=== PATIENT | female | born 1960 | race Caucasian/White ===

== ENCOUNTER → 2017-07-03 | Outpatient (CLI) | payer BC, OTHER ==
--- NOTE | 2017-07-03 08:55 | REPMRS ---
Patient History The patient states she had a clinical breast exam in 07/06 Patient is postmenopausal and has history of thyroid cancer at age 41. No known family history of cancer. Taking unspecified hormones for 8 years. Digital Woman Screen Mammo: July 03, 2017 - Exam #: [id number] Bilateral CC and MLO view(s) were taken. Technologist: Noris Garcia, Technologist Prior study comparison: June 20, 2016, digital woman screen mammo performed at [facility]. June 06, 2015, digital woman screen mammo performed at [facility] to [facility]. FINDINGS: There are scattered fibroglandular densities. There has been no change in the appearance of the mammogram from the prior studies. There is a mild amount of residual fibroglandular tissue which is fairly symmetric. There is no interval development of dominant mass, architectural distortion, or clustered microcalcification suggestive of malignancy. ASSESSMENT: BI-RADS/ACR category 1 mammogram. Negative. Recommendation Routine screening mammogram in 1 year (for women over age 40). This mammogram was interpreted with the aid of an FDA-approved computer-aided dectection system. Electronically Signed By: Itz Dotson MD 07/03/17 [id number]
== END ==
LOC: M WHC 08:12
PROVIDERS: ATTEND Nurse Practitioner Women's Health
DX: Z12.31 Encounter for screening mammogram for malignant neoplasm of breast (principal)

== ENCOUNTER 2017-10-02 06:55 | Day surgery (SDC) | payer BC, OTHER ==
[2017-10-02] MEDS ORDERED: NS 1,000 ML IV (07:30)
[2017-10-02] MEDS ORDERED: PROPOFOL 200 MG/20 ML VIAL As Ordered (07:50)
[2017-10-02] MEDS ORDERED: LIDOCAINE 2% INJ 100 MG/5 ML SDV (FOR ANES.) As Ordered (07:50)
== END 2017-10-02 08:40 | disposition home or self-care (01) ==
LOC: M OPP 06:55
DX: Z12.11 Encounter for screening for malignant neoplasm of colon (principal); D12.5 Benign neoplasm of sigmoid colon; K57.30 Diverticulosis of large intestine without perforation or abscess without bleeding; M17.0 Bilateral primary osteoarthritis of knee; Z85.850 Personal history of malignant neoplasm of thyroid; Z90.710 Acquired absence of both cervix and uterus
CPT/HCPCS: 45385

== ENCOUNTER → 2018-06-30 | Outpatient (CLI) | payer BC, OTHER | LOC: M WHC 06:37 | DX: Z12.31 Encounter for screening mammogram for malignant neoplasm of breast (principal); Z78.0 Asymptomatic menopausal state | CPT/HCPCS: 77067 ==

== ENCOUNTER 2019-12-24 12:42 | Emergency (ER) | payer OTHER ==
[~2019-12-24] VITALS: Ht 162.6 cm; Wt 69.1 kg
[~2019-12-24 12:42] MED LIST: ESTR1TAB3 PO; L-FO500T PO; MULT1CHW26 PO; VITA100067 PO; [UNRECOGNIZED DRUG - OTHER]
--- NOTE | 2019-12-24 13:54 | REPVR ---
PROCEDURE INFORMATION: Exam: CT Head Without Contrast Exam date and time: 12/24/2019 1:46 PM Age: 59 years old Clinical indication: Weakness, extremity; Left; Additional info: L ue weakness TECHNIQUE: Imaging protocol: Computed tomography of the head without contrast. Radiation optimization: All CT scans at this facility use at least one of these dose optimization techniques: automated exposure control; mA and/or kV adjustment per patient size (includes targeted exams where dose is matched to clinical indication); or iterative reconstruction. COMPARISON: No relevant prior studies available. FINDINGS: Brain: No acute intracranial hemorrhage, cerebral edema, or midline shift. Ventricles: No hydrocephalus. Bones/joints: No acute fracture. Sinuses: No acute sinusitis. Mastoid air cells: Visualized mastoid air cells are well aerated. Soft tissues: Unremarkable. IMPRESSION: No acute intracranial abnormality. Electronically signed by: Darrel Prieto On 12/24/2019 13:54:42 PM
[2019-12-24] MEDS ORDERED: IBUP-1022 PO (14:05)
[2019-12-24] MEDS ORDERED: CYCL-707 PO (14:05)
[2019-12-24 14:14] VITALS: BP 145/77
== END 2019-12-24 14:15 | disposition home or self-care (01) ==
LOC: M ED 12:42
DX: M54.12 Radiculopathy, cervical region (principal); I10 Essential (primary) hypertension; E89.0 Postprocedural hypothyroidism; Z85.850 Personal history of malignant neoplasm of thyroid; Z79.899 Other long term (current) drug therapy

== ENCOUNTER → 2020-01-17 | Outpatient (CLI) | payer OTHER ==
[~2020-01-17] MED LIST changes: +CYCL-707 PO; +IBUP-1022 PO
[2020-01-17 15:51] LABS: RHEUMATOID FACTOR QUANT < 10.0 IU/ML (<15.0)
[2020-01-17 15:58] LABS: FOLATE 21.8 NG/ML; VITAMIN B12 LEVEL 409 PG/ML
[2020-01-23 15:16] LABS: ANTINUCLEAR ANTIBODIES DIRECT Negative (Negative); CERULOPLASMIN 25.2 mg/dL (19.0-39.0); COPPER PLASMA 109 ug/dL (72-166); Lyme Disease IgG/IgM Antibodie <0.91 ISR (0.00-0.90); Lyme Disease IgM Ab Quantitati <0.80 index (0.00-0.79); VITAMIN B1 LEVEL WHOLE BLOOD 192.9 nmol/L (66.5-200.0); VITAMIN B6,PYRIDOXAL PHOSPHATE 17.8 ug/L (2.0-32.8); VITAMIN E(ALPHA TOCOPHEROL) 11.7 mg/L (7.0-25.1); VITAMIN E(GAMMA TOCOPHEROL) 2.5 mg/L (0.5-5.5)
== END ==
LOC: M WUC 13:19
PROVIDERS: ATTEND Psychiatry & Neurology Neurology
DX: M62.81 Muscle weakness (generalized) (principal)

== ENCOUNTER → 2020-05-26 | Outpatient (CLI) | payer OTHER ==
--- NOTE | 2020-05-26 10:10 | REP ---
INDICATION: AGUILAR SCR MAMMO. COMPARISON: 06/30/2018 as well as other prior exams. TECHNIQUE: MLO and CC views of both breasts performed with tomosynthesis. FINDINGS: Mild fibroglandular tissue is scattered bilaterally. In the left retroareolar region a 6 mm nodular density is seen, only in the MLO projection. This may be artifactual. Otherwise no mass or clustered microcalcifications are seen bilaterally. There are normal appearing axillary lymph nodes bilaterally. The Volpara volumetric breast density pattern is it be. IMPRESSION: BIRADS/ACR category 0 incomplete. 6 mm nodular density in the left retroareolar region is only seen in the MLO projection. Recommend spot-compression view of the left breast in the MLO projection as well as a left mL tomographic sequence. Other views and ultrasound may also be necessary. This patient's Tyrer-Cuzick lifetime breast cancer risk assessment score is 7.7%. This mammogram was interpreted with the aid of an FDA-approved computer-aided detection system. The patient states she had a clinical breast exam in May 2020. The patient letter being requested is M0. RECOMMENDATION: Recommend additional mammographic imaging left breast, ultrasound may also be necessary. <Electronically signed by Itz Dotson > 05/26/20 [id number]
== END ==
LOC: M WHC 08:32
PROVIDERS: ATTEND Nurse Practitioner Women's Health
DX: Z12.31 Encounter for screening mammogram for malignant neoplasm of breast (principal)

== ENCOUNTER → 2020-06-21 | Outpatient (CLI) | payer OTHER ==
--- NOTE | 2020-06-21 16:22 | REP ---
INDICATION: ADDITIONAL VIEWS LT BREAST. COMPARISON: Screening mammography May 26, 2020 BI-RADS category 0 because of a possible nodular opacity in the left upper outer quadrant on MLO view only. Comparison is also made with June 30, 2018 prior mammography and July 03, 2017 study. TECHNIQUE: Magnified focal spot-compression CC, mL, and MLO views of the left breast are obtained. A true mediolateral view with 3D tomography is also acquired. FINDINGS: Diagnostic mammography fails to identify the nodular density in question. Scattered stromal elements are seen. No spiculation, mass, or architectural distortion is seen. The Volpara volumetric breast density pattern is B. Targeted sonography: Left breast is scanned in the upper outer quadrant region. Fairly homogeneous fibroglandular fat parenchyma is seen sonographically. No cyst, mass or acoustic shadowing is observed. No suspicious ultrasound finding. IMPRESSION: BIRADS/ACR category 2 benign left breast mammogram and sonographic findings. This patient's Tyrer-Cuzick lifetime breast cancer risk assessment score is 7.7%. This mammogram was interpreted with the aid of an FDA-approved computer-aided detection system. RECOMMENDATION: Repeat screening mammography recommended 1 year (for women over 40). The patient letter being requested is M1. <Electronically signed by Eduardo Littlejohn > 06/21/20 [id number]
== END ==
LOC: M WHC 08:32
PROVIDERS: ATTEND Nurse Practitioner Women's Health
DX: R92.2 Inconclusive mammogram (principal)

== ENCOUNTER → 2021-07-09 | Outpatient (CLI) | payer OTHER | LOC: M WHC 15:39 | PROVIDERS: ATTEND Nurse Practitioner Women's Health | DX: Z12.31 Encounter for screening mammogram for malignant neoplasm of breast (principal) ==

== ENCOUNTER → 2022-08-06 | Outpatient (CLI) | payer OTHER | LOC: M WUC 08:54 | PROVIDERS: ATTEND Physician Assistant | DX: M79.644 Pain in right finger(s) (principal) ==

== ENCOUNTER → 2022-10-04 | Outpatient (CLI) | payer OTHER ==
[2022-10-04 17:58] LABS: BASO # 0.1 10^3/uL (0.0-0.2); BASO % 0.8 % (0.0-1.0); EOS # 0.3 10^3/uL (0.0-0.5); EOS % 4.4 % (0.0-3.0); HEMATOCRIT 37.9 % (36.0-47.0); HEMOGLOBIN 12.7 g/dl (12.0-15.5); LYMPH # 1.6 10^3/uL (1.5-5.0); LYMPH % 24.6 % (24.0-44.0); MEAN CORPUSCULAR HEMOGLOBIN 32.8 pg (27.0-33.0); MEAN CORPUSCULAR HGB CONC 33.5 g/dl (32.0-36.5); MEAN CORPUSCULAR VOLUME 97.9 fl (80.0-96.0); MONO # 0.4 10^3/uL (0.0-0.8); MONO % 5.6 % (2.0-8.0); NEUTROPHILS # 4.3 10^3/uL (1.5-8.5); NEUTROPHILS % 64.3 % (36.0-66.0); PLATELET COUNT, AUTOMATED 385 10^3/uL (150-450); RED BLOOD COUNT 3.87 10^6/uL (4.00-5.40); WHITE BLOOD COUNT 6.6 10^3/uL (4.0-10.0)
[2022-10-04 18:31] LABS: ALBUMIN 4.2 G/DL (3.2-5.2); ALKALINE PHOSPHATASE 60 U/L (46-116); ALT/SGPT 25 U/L (7.0-40); AST/SGOT 27 U/L (<34); BILIRUBIN,TOTAL 0.4 MG/DL (0.3-1.2); BLOOD UREA NITROGEN 14 MG/DL (9-23); CALCIUM LEVEL 9.3 MG/DL (8.3-10.6); CARBON DIOXIDE LEVEL 28 MMOL/L (20-31); CHLORIDE LEVEL 105 MMOL/L (98-107); CREATININE FOR GFR 0.76 MG/DL (0.55-1.30); GLOMERULAR FILTRATION RATE > 60.0 (>45); GLUCOSE, FASTING 77 MG/DL (74-106); POTASSIUM SERUM 4.1 MMOL/L (3.5-5.1); SODIUM LEVEL 139 MMOL/L (136-145); TOTAL PROTEIN 7.1 G/DL (5.7-8.2)
[2022-10-04 18:39] LABS: THYROID STIMULATING HORMONE 2.001 uIU/ML (0.55-4.78)
== END ==
LOC: M WUC 14:41
PROVIDERS: ATTEND Physician Assistant
DX: R42 Dizziness and giddiness (principal)

== ENCOUNTER → 2022-10-04 | Outpatient (CLI) | payer OTHER ==
[2022-10-04 17:57] LABS: BASO # 0.1 10^3/uL (0.0-0.2); BASO % 0.9 % (0.0-1.0); EOS # 0.3 10^3/uL (0.0-0.5); EOS % 4.1 % (0.0-3.0); HEMATOCRIT 39.5 % (36.0-47.0); HEMOGLOBIN 12.7 g/dl (12.0-15.5); LYMPH # 1.6 10^3/uL (1.5-5.0); LYMPH % 24.1 % (24.0-44.0); MEAN CORPUSCULAR HEMOGLOBIN 31.4 pg (27.0-33.0); MEAN CORPUSCULAR HGB CONC 32.2 g/dl (32.0-36.5); MEAN CORPUSCULAR VOLUME 97.8 fl (80.0-96.0); MONO # 0.4 10^3/uL (0.0-0.8); MONO % 6.4 % (2.0-8.0); NEUTROPHILS # 4.3 10^3/uL (1.5-8.5); NEUTROPHILS % 64.2 % (36.0-66.0); PLATELET COUNT, AUTOMATED 404 10^3/uL (150-450); RED BLOOD COUNT 4.04 10^6/uL (4.00-5.40); WHITE BLOOD COUNT 6.8 10^3/uL (4.0-10.0)
[2022-10-04 18:16] LABS: URIC ACID 6.5 MG/DL (3.1-7.8)
[2022-10-04 18:18] LABS: C REACTIVE PROTEIN QUANTITATIV < 0.40 MG/DL (<1.0)
[2022-10-04 18:19] LABS: RHEUMATOID FACTOR QUANT < 3.5 IU/ML (<14)
[2022-10-04 18:26] LABS: ERYTHROCYTE SEDIMENTATION RATE 8 mm/hr (0-30)
[2022-10-07 14:08] LABS: ANTINUCLEAR ANTIBODIES DIRECT Negative (Negative)
== END ==
LOC: M WUC 14:38
PROVIDERS: ATTEND Orthopaedic Surgery
DX: M19.041 Primary osteoarthritis, right hand (principal)

== ENCOUNTER → 2022-10-16 | Outpatient (CLI) | payer OTHER | LOC: M WHC 15:45 | PROVIDERS: ATTEND Advanced Practice Midwife | DX: Z12.31 Encounter for screening mammogram for malignant neoplasm of breast (principal) ==

== ENCOUNTER 2023-11-09 13:28 | Emergency (ER) | payer OTHER ==
[~2023-11-09] VITALS: Ht 160 cm; Wt 63.6 kg
[2023-11-09] MEDS: METOCLOPRAMIDE INJ 10MG/2ML VIAL IV ONE (15:39)
[2023-11-09] MEDS: diphenhydrAMINE 50MG/ML VIAL IV STA (15:39)
[2023-11-09] MEDS ORDERED: KETOROLAC 30 MG/ML 1ML VIAL IV ONE (16:30)
[2023-11-09 19:03] VITALS: BP 142/78; TEMP 97.9; O2SAT 98
== END 2023-11-09 19:03 | disposition home or self-care (01) ==
LOC: M ED 13:28
DX: R51.9 Headache, unspecified (principal); Z79.810 Long term (current) use of selective estrogen receptor modulators (SERMs)
CPT/HCPCS: 70450; 70544; 70551; 96374; 96375; 99284; J1200; J2765

== ENCOUNTER → 2023-12-30 | Outpatient (CLI) | payer OTHER | LOC: M WHC 14:25 | PROVIDERS: ATTEND Advanced Practice Midwife | DX: Z12.31 Encounter for screening mammogram for malignant neoplasm of breast (principal) ==

== ENCOUNTER → 2024-08-16 | Outpatient (CLI) | payer OTHER ==
[2024-08-16 14:56] LABS: HEMATOCRIT 38.7 % (36.0-47.0); HEMOGLOBIN 12.6 g/dl (12.0-15.5); MEAN CORPUSCULAR HEMOGLOBIN 31.4 pg (27.0-33.0); MEAN CORPUSCULAR HGB CONC 32.6 g/dl (32.0-36.5); MEAN CORPUSCULAR VOLUME 96.5 fl (80.0-96.0); PLATELET COUNT, AUTOMATED 379 10^3/uL (150-450); RED BLOOD COUNT 4.01 10^6/uL (4.00-5.40)
[2024-08-16 15:26] LABS: THYROID STIMULATING HORMONE 2.517 uIU/ML (0.55-4.78)
[2024-08-16 15:27] LABS: ALKALINE PHOSPHATASE 68 U/L (35-104); ALT/SGPT 22 U/L (7.0-40); AST/SGOT 23 U/L (<34); BILIRUBIN,TOTAL 0.4 MG/DL (0.3-1.2); BLOOD UREA NITROGEN 14 MG/DL (9-23); CALCIUM LEVEL 9.4 MG/DL (8.3-10.6); CARBON DIOXIDE LEVEL 25 MMOL/L (20-31); CHLORIDE LEVEL 104 MMOL/L (98-107); CHOLESTEROL LEVEL 245 MG/DL (<200); CHOLESTEROL RISK RATIO 2.87 (<5); CREATININE FOR GFR 0.74 MG/DL (0.55-1.30); GLOMERULAR FILTRATION RATE > 60.0 (>45); GLUCOSE, FASTING 99 MG/DL (74-106); HDL CHOLESTEROL 85.2 MG/DL (>40); LDL CHOLESTEROL 139.4 MG/DL (<100); NON-HDL-C 159.8 MG/DL; POTASSIUM SERUM 4.4 MMOL/L (3.5-5.1); SODIUM LEVEL 139 MMOL/L (136-145); TRIGLYCERIDES LEVEL 102 MG/DL (<150)
== END ==
LOC: M WUC 09:08
PROVIDERS: ATTEND Physician Assistant
DX: D64.9 Anemia, unspecified (principal); E78.5 Hyperlipidemia, unspecified

== ENCOUNTER → 2025-03-02 | Outpatient (CLI) | payer OTHER | LOC: M WHC 10:37 | PROVIDERS: ATTEND Advanced Practice Midwife | DX: Z12.31 Encounter for screening mammogram for malignant neoplasm of breast (principal) ==